=== PATIENT | female | born 1930 | race Caucasian/White ===

== ENCOUNTER 2017-10-08 01:07 | Emergency (ER) | payer OTHER, BC ==
[~2017-10-08] VITALS: Ht 152.4 cm; Wt 71.8 kg
[2017-10-08 01:20] VITALS: TEMP 36.6; Ht 152.4 cm; Wt 71.8 kg
[2017-10-08] MEDS ORDERED: SODIUM CHLORIDE 0.9% 500ML 500 ML IV STA (01:41)
[2017-10-08 01:49] LABS: BASO % 0.4 %; BASO ABS # 0.02 K/uL (0-0.2); COMPLETE YES; EOS % 2.2 %; HEMATOCRIT 40.3 % (37-47); IG% 0.4 %; LYMPH % 32.5 %; LYMPH ABS # 1.61 K/uL (1.2-3.4); MEAN CELL VOLUME 95.3 fL (80-100); MEAN CORPUSCULAR HEMOGLOBIN 32.6 pg (25-34); MEAN CORPUSCULAR HGB CONC 34.2 g/dl (32-36); MEAN PLATELET VOLUME 10.6 fL (7.4-10.4); MONO % 11.9 %; NEUT % 52.6 %; PLATELET COUNT 202 K/uL (130-400); RED BLOOD COUNT 4.23 M/uL (4.2-5.4); WHITE BLOOD COUNT 4.95 K/uL (4.8-10.8)
[2017-10-08 01:58] LABS: PROTHROMBIN TIME (PATIENT) 10.7 SECONDS (9.0-12.0)
[2017-10-08 02:07] LABS: ALT/SGPT 30 U/L (12-78); AST/SGOT 27 U/L (15-37); BLOOD UREA NITROGEN 11 mg/dl (7-18); BUN/CREATININE RATIO 12.5 (10-20); CALCIUM 8.9 mg/dl (8.5-10.1); CARBON DIOXIDE 25 mmol/L (21-32); CHLORIDE 104 mmol/L (98-107); CREATININE 0.88 mg/dl (0.60-1.20); GLUCOSE 113 mg/dl (70-99); MAGNESIUM 2.2 mg/dl (1.8-2.4); SODIUM 136 mmol/L (136-145)
[2017-10-08 02:17] LABS: ALB/GLOB RATIO 1.1 (0.9-2); ALKALINE PHOSPHATASE 73 U/L (45-117)
[2017-10-08 02:38] LABS: URINE APPEARANCE CLEAR (CLEAR); URINE BILIRUBIN NEG (NEG); URINE COLOR YELLOW; URINE NITRITE NEG (NEG); URINE SPECIFIC GRAVITY 1.014 (1.000-1.030); UROBILINOGEN NEG (NEG); ZZUR CULT IF INDIC CLEAN CATCH NO
[2017-10-08 02:41] LABS: MANUAL MICROSCOPIC REQUIRED? NO; REVIEW REQ? NO
--- NOTE | 2017-10-08 02:49 | EMERGENCY ROOM VISIT NOTE ---
History Report prepared by Robson: Alina Gauthier Under the Supervision of: Dr. Sabrina Love D.O. First contact with patient: 01:30 Chief Complaint: HYPERTENSION Stated Complaint: HIGH BLOOD PRESSURE,LIGHT HEADED History of Present Illness The patient is an 87 year old female who presents to the Emergency Room with complaints of persistent hypertension starting [employer]. The patient states she had been on the same BP meds for years, then began having problems with her blood pressure for the past couple of weeks. Her hypertension medication was changed around 1 month ago after which her blood pressure started increasing. 1.5 weeks ago, her medication was adjusted again. She was told to monitor her blood pressure. If she gets into the 200s, she was told to see a doctor. She took all her normal medications today. She has a blood pressure medication that she is supposed to take if her pressure becomes too high. She tried taking this today to no relief. She can tell her blood pressure is high when she feels tightness in the back of her neck. She currently does not have neck tightness. She does not get a headache when her pressure is high. She denies any vision changes, nausea, chest pain, SOB, urinary symptoms, leg swelling, numbness, or tingling. She notes she had two bowel movements today which is unusual. She had some ham today, but her pressure is usually not sensitive to diet. She doesn't know her current medication list. Source of History: patient, family Onset: [employer] Position: other (global) Quality: other (hypertension) Timing: other (persistent) Associated Symptoms: No headache, No neck pain, No chest pain, No SOB, No nausea, No urinary symptoms, No numbness Note: Pt denies vision changes, leg swelling, tingling. Review of Systems See HPI for pertinent positives & negatives. A total of 10 systems reviewed and were otherwise negative. Past Medical & Surgical Medical Problems: (1) Hypertension Family History Noncontributory secondary to age. Social History Smoking Status: Never Smoker Marital Status: Occupation Status: retired Current/Historical Medications Scheduled Calcium/Vitamin D (Os-[place] 500 Plus D), 1 TAB PO DAILY [B/P Med], 1 TAB PO DIRECTED Scheduled PRN Clonidine Hcl (Catapres), 1 TAB PO BID PRN for Blood Pressure Physical Exam Vital Signs Date Time Temp Pulse Resp B/P (MAP) Pulse Ox O2 Delivery O2 Flow Rate FiO2 10/08/17 06:34 67 18 173/96 96 10/08/17 05:35 59 10/08/17 05:30 59 17 149/54 93 10/08/17 05:00 57 17 159/52 93 Room Air 10/08/17 04:30 55 16 165/68 93 10/08/17 04:07 64 17 196/74 97 10/08/17 03:30 68 17 163/60 97 10/08/17 03:01 58 17 204/77 10/08/17 02:40 59 15 185/115 96 10/08/17 02:01 61 17 236/85 10/08/17 01:30 71 10/08/17 01:30 72 221/74 10/08/17 01:30 72 16 214/84 10/08/17 01:20 36.6 65 20 196/79 98 Room Air Physical Exam GENERAL: alert, well appearing, well nourished, no distress, non-toxic, appears younger than stated age. EYE EXAM: normal conjunctiva, PERRL and EOM's grossly intact OROPHARYNX: no exudate, no erythema, lips, buccal mucosa, and tongue normal and mucous membranes are moist NECK: supple, no nuchal rigidity, no adenopathy, non-tender LUNGS: Clear to auscultation. Normal chest wall mechanics HEART: no murmurs, S1 normal and S2 normal ABDOMEN: abdomen soft, non-tender, normo-active bowel sounds, no masses, no rebound or guarding. BACK: Back is symmetrical on inspection and there is no deformity, no midline tenderness, no CVA tenderness. SKIN: no rashes and no bruising UPPER EXTREMITIES: upper extremities are grossly normal. LOWER EXTREMITIES: No pitting edema. NEURO EXAM: Normal sensorium, cranial nerves II-XII grossly intact, normal speech, no gross weakness of arms, no gross weakness of legs. Medical Decision & Procedures ER Provider Diagnostic Interpretation: X-ray: I interpreted the following studies. Chest: A two view study of the chest was reviewed and was negative for cardiomegaly, focal infiltrate, effusion , pulmonary edema, or wide mediastinum. Age related calcifications noted. Patient rotated. Laboratory Results 10/08/17 01:38 Red Blood Count 4.23, Mean Corpuscular Volume 95.3, Mean Corpuscular Hemoglobin 32.6, Mean Corpuscular Hemoglobin Concent 34.2, Mean Platelet Volume 10.6, Neutrophils (%) (Auto) 52.6, Lymphocytes (%) (Auto) 32.5, Monocytes (%) (Auto) 11.9, Eosinophils (%) (Auto) 2.2, Basophils (%) (Auto) 0.4, Neutrophils # (Auto ) 2.60, Lymphocytes # (Auto) 1.61, Monocytes # (Auto) 0.59, Eosinophils # (Auto ) 0.11, Basophils # (Auto) 0.02 10/08/17 01:38 Test 10/08/17 01:38 10/08/17 02:06 White Blood Count 4.95 K/uL (4.8-10.8) Red Blood Count 4.23 M/uL (4.2-5.4) Hemoglobin 13.8 g/dL (12.0-16.0) Hematocrit 40.3 % (37-47) Mean Corpuscular Volume 95.3 fL (80-100) Mean Corpuscular Hemoglobin 32.6 pg (25-34) Mean Corpuscular Hemoglobin Concent 34.2 g/dl (32-36) Platelet Count 202 K/uL (130-400) Mean Platelet Volume 10.6 fL (7.4-10.4) Neutrophils (%) (Auto) 52.6 % Lymphocytes (%) (Auto) 32.5 % Monocytes (%) (Auto) 11.9 % Eosinophils (%) (Auto) 2.2 % Basophils (%) (Auto) 0.4 % Neutrophils # (Auto) 2.60 K/uL (1.4-6.5) Lymphocytes # (Auto) 1.61 K/uL (1.2-3.4) Monocytes # (Auto) 0.59 K/uL (0.11-0.59) Eosinophils # (Auto) 0.11 K/uL (0-0.5) Basophils # (Auto) 0.02 K/uL (0-0.2) RDW Standard Deviation 45.3 fL (36.4-46.3) RDW Coefficient of Variation 13.1 % (11.5-14.5) Immature Granulocyte % (Auto) 0.4 % Immature Granulocyte # (Auto) 0.02 K/uL (0.00-0.02) Prothrombin Time 10.7 SECONDS (9.0-12.0) Prothromb Time International Ratio 1.0 (0.9-1.1) Anion Gap 7.0 mmol/L (3-11) Est Creatinine Clear Calc Drug Dose 39.1 ml/min Estimated GFR () 68.0 Estimated GFR (Non- 58.7 BUN/Creatinine Ratio 12.5 (10-20) Calcium Level 8.9 mg/dl (8.5-10.1) Magnesium Level 2.2 mg/dl (1.8-2.4) Total Bilirubin 0.4 mg/dl (0.2-1) Aspartate Amino Transf (AST/SGOT) 27 U/L (15-37) Alanine Aminotransferase (ALT/SGPT) 30 U/L (12-78) Alkaline Phosphatase 73 U/L (45-117) Troponin I < 0.015 ng/ml (0-0.045) Pro-B-Type Natriuretic Peptide 175 pg/ml (0-1800) Total Protein 7.4 gm/dl (6.4-8.2) Albumin 3.8 gm/dl (3.4-5.0) Globulin 3.6 gm/dl (2.5-4.0) Albumin/Globulin Ratio 1.1 (0.9-2) Thyroid Stimulating Hormone (TSH) 1.980 uIu/ml (0.300-4.500) Urine Color YELLOW Urine Appearance CLEAR (CLEAR) Urine pH 8.0 (4.5-7.5) Urine Specific [place] 1.014 (1.000-1.030) Urine Protein NEG (NEG) Urine Glucose (UA) NEG (NEG) Urine Ketones NEG (NEG) Urine Occult Blood NEG (NEG) Urine Nitrite NEG (NEG) Urine Bilirubin NEG (NEG) Urine Urobilinogen NEG (NEG) Urine Leukocyte Esterase TRACE (NEG) Urine WBC (Auto) 1-5 /hpf (0-5) Urine RBC (Auto) 0-4 /hpf (0-4) Urine Hyaline Casts (Auto) 1-5 /lpf (0-5) Urine Epithelial Cells (Auto) 10-20 /lpf (0-5) Urine Bacteria (Auto) NEG (NEG) Laboratory results per my review. Medications Administered Medications (Trade) Dose Ordered Sig/Jeffry Route Start Time Stop Time Status Last Admin Dose Admin Sodium Chloride 500 ml @ 999 mls/hr Q31M STAT IV 10/08/17 01:41 10/08/17 02:11 DC 10/08/17 02:14 999 MLS/HR Amlodipine Besylate (Norvasc Tab) 5 mg NOW ONCE PO 10/08/17 03:30 10/08/17 03:31 DC 10/08/17 03:36 5 MG ECG Indication: other Rate (beats per minute): 59 Rhythm: sinus bradycardia Findings: T-wave inversion (lead 3), other (normal axis, normal intervals, no other acute ischemia) ED Course 0132: The patient was evaluated in room A2. A complete history and physical exam was performed. 0141: NSS 500 ml @ 999 mls/hr IV. 0330: Norvasc Tab 5 mg PO. 0337: I reevaluated the patient. I updated her on the results. 0534: Upon reevaluation, the patient is feeling better. She has not had any recurrence of symptoms. I discussed the findings and the treatment plan with the patient. She verbalizes agreement and understanding. She was discharged home. Medical Decision Differential diagnosis: Etiologies such as benign hypertension, hypertensive emergency, cardiovascular pathology, pheochromocytoma, electrolyte abnormality, renal disease, endorgan damage, as well as others were entertained. Pt well appearing here without symptoms. Found to be hypertensive similar to her readings at home. Discussed with her close f/u with PCP, writing down and keeping a copy of her meds with her. Close f/u with her doctor, sx to watch/ return for, avoiding salt in her diet, she verbalized understanding and was agreeable with plan. BP improved here after one dose of norvasc. No sx or evidence of hypertensive emergency, no evidence of end organ damage. Normal non focal neuro exam, doubt dissection, cva/ICH. No sx or evidence of acs. No evidence of infectious etiology. Discussed with pt appropriate diet given recent intake. Pt ambulated with steady and tolerating po, well appearing at vt , family comfortable with plan and is going to stay with her over the next several days as a precaution. Medication Reconcilliation Current Medication List: was personally reviewed by me Blood Pressure Screening Patient's blood pressure: Elevated blood pressure Blood pressure disposition: Referred to PCP Impression Primary Impression: Hypertension Scribe Attestation The scribe's documentation has been prepared under my direction and personally reviewed by me in its entirety. I confirm that the note above accurately reflects all work, treatment, procedures, and medical decision making performed by me. Departure Information Dispostion Home / Self-Care Referrals No Doctor, Assigned (PCP) [facility] Instructions [facility] Additional Instructions Please continue taking all of her usual medications including your normal morning doses today. Please avoid any added salt in your diet including in the form of processed and preserved foods. If you develop chest pain, headaches, vision changes, dizziness, numbness or tingling, neck or back pain, or you have any other new concerns, please return to the emergency room. Please take your blood pressure at home only as your previously directed by your family doctor. Problem Qualifiers Primary Impression: Hypertension Hypertension type: essential hypertension Qualified Codes: I10 - Essential ( primary) hypertension
[2017-10-08] MEDS ORDERED: CALC500C70 PO (02:51)
[2017-10-08] MEDS ORDERED: B/P MED PO (02:52)
[2017-10-08] MEDS ORDERED: CLON0.1T12 PO (02:54)
[2017-10-08] MEDS ORDERED: AMLODIPINE BESYLATE 5 MG TAB PO ONE (03:30)
[2017-10-08 06:34] VITALS: BP 173/96; PULSE 67; O2SAT 96
--- NOTE | 2017-10-08 08:07 | DIAGNOSTIC IMAGING REPORT ---
CHEST ONE VIEW PORTABLE HISTORY: hypertension COMPARISON: None. FINDINGS: The lungs are clear. Cardiac silhouette is normal in size. No pleural effusions. No pneumothorax. IMPRESSION: No acute process. Electronically signed by: Simone Osorio M.D. 10/08/2017 8:06 AM Dictated Date/Time: 10/08/2017 8:05 AM
== END 2017-10-08 06:36 | disposition home or self-care (01) ==
LOC: C.EDB 01:09 → EDBD 01:09 → C.EDA 06:36
DX: I10 Essential (primary) hypertension (principal)